=== PATIENT | female | born 1990 | race Caucasian/White ===

== ENCOUNTER 2019-07-07 23:42 | Emergency (ER) | payer OTHER ==
[~2019-07-07] VITALS: Ht 167.6 cm; Wt 65.3 kg
[2019-07-07] MEDS ORDERED: LEXAPRO 10 MG T10 MG PO (23:52)
[2019-07-08] MEDS ORDERED: DEXAMETHASONE 22 M1 PO (01:28)
[2019-07-08] MEDS ORDERED: PROAIR HFA8.5 GM INH (01:28)
[2019-07-08 01:36] VITALS: BP 109/69
--- NOTE | 2019-07-09 12:56 | EKG ---
[address] [address] ELECTROCARDIOGRAM REPORT Name: ZEUS GREENE Room #: DEP [facility]#: [id number] Admission: 07/07/19 Attend Phys: Discharge: 07/08/19 Date of : 89 Report #: [id number] THIS REPORT FOR: //name// [facility] ED Test Date: 2019-07-08 Test Time: 00:07:09 Pat Name: ZEUS GREENE Department: Room: Gender: F [employer]: ELENI : 1990 Requested By: Eddy Horton Order Number: [id number] MD: Dorian Finch Measurements Intervals [place] Rate: 107 P: 69 KS: 134 QRS: 83 QRSD: 78 T: -8 QT: 325 QTc: 434 Interpretive Statements Sinus tachycardia Borderline repolarization abnormality No previous ECG available for comparison Electronically Signed On 07-09-2019 12:56:17 [employer]EARCH PHLEB[employer] by Dorian Finch [email or web address] <ELECTRONICALLY SIGNED> By: Dorian Finch MD, [facility] 07/09/19 [id number] Dorian Finch MD, FACC /EPI
== END 2019-07-08 01:37 | disposition home or self-care (01) ==
LOC: ER 23:42
DX: J40 Bronchitis, not specified as acute or chronic (principal); Z79.899 Other long term (current) drug therapy